=== PATIENT | male | born 1950 | race Caucasian/White ===

== ENCOUNTER 2017-09-13 12:11 | Outpatient (CLI) | payer OTHER ==
[~2017-09-13 12:11] MED LIST: CARDURA8 MG; COUMADIN1 MG; COZAAR100 MG; ELIQUIS2.5 MG; GLUMETZA1000 MG; LANTUS100 U/ML; LEVAQUIN750 MG PO; LOTRIL; METFORMIN HCL1000 MG; NORVASC10 MG; ORPH100T PO; PANADOL MAXIMU500 MG PO; PYRIDIUM200 MG PO; TAMS0.4C PO; TOPROL; WELLBUTRIN XL300 MG; [UNRECOGNIZED DRUG - OTHER]; [UNRECOGNIZED DRUG - OTHER]; [UNRECOGNIZED DRUG - OTHER]
== END 2017-09-13 12:17 | disposition home or self-care (01) ==
LOC: LAB 12:11
DX: R97.21 Rising PSA following treatment for malignant neoplasm of prostate (principal)

== ENCOUNTER → 2017-09-24 11:18 | Outpatient (CLI) | payer OTHER | END | disposition home or self-care (01) | LOC: LAB 11:18 | DX: R97.20 Elevated prostate specific antigen [PSA] (principal) ==

== ENCOUNTER → 2017-10-04 08:55 | Outpatient (CLI) | payer OTHER | END | disposition home or self-care (01) | LOC: LAB 08:55 | DX: I10 Essential (primary) hypertension (principal); E11.9 Type 2 diabetes mellitus without complications; E03.8 Other specified hypothyroidism; E78.2 Mixed hyperlipidemia ==

== ENCOUNTER 2017-11-01 07:03 | Outpatient (CLI) | payer OTHER | END 2017-11-01 07:12 | disposition home or self-care (01) | LOC: SONOGRAMA 07:03 | DX: R97.20 Elevated prostate specific antigen [PSA] (principal) ==

== ENCOUNTER 2018-03-07 08:36 | Outpatient (CLI) | payer OTHER | END 2018-03-07 08:43 | disposition home or self-care (01) | LOC: LAB 08:36 | DX: I10 Essential (primary) hypertension (principal); E11.9 Type 2 diabetes mellitus without complications; E03.8 Other specified hypothyroidism; E78.2 Mixed hyperlipidemia ==

== ENCOUNTER 2018-05-19 11:16 | Outpatient (CLI) | payer OTHER | END 2018-05-19 14:56 | disposition home or self-care (01) | LOC: MRI 11:16 | DX: M46.47 Discitis, unspecified, lumbosacral region (principal) | CPT/HCPCS: 72148 ==

== ENCOUNTER 2018-05-28 07:25 | Outpatient (CLI) | payer OTHER | END 2018-05-28 07:37 | disposition home or self-care (01) | LOC: LAB 07:25 | DX: C61 Malignant neoplasm of prostate (principal) ==

== ENCOUNTER 2018-08-10 10:57 | Inpatient (IN) | payer OTHER ==
[~2018-08-10] VITALS: Ht 180.3 cm; Wt 92.5 kg
[2018-08-10] MEDS ORDERED: XARELTO10 MG (11:05)
[2018-08-10] MEDS ORDERED: LANTUS SOL100 UNIT/1 (11:05)
[2018-08-10] MEDS ORDERED: METFORMIN HCL500 MG (11:05)
== END 2018-08-12 13:13 | disposition home or self-care (01) | DRG 390 ==
LOC: ER 10:57 → SURH 16:37
PROVIDERS: ADMIT Surgery
PROC: BW21ZZZ Computerized Tomography (CT Scan) of Abdomen and Pelvis (ICD-10-PCS; principal; 2018-08-10)
DX: K56.690 Other partial intestinal obstruction (principal); N20.0 Calculus of kidney; I10 Essential (primary) hypertension; E11.42 Type 2 diabetes mellitus with diabetic polyneuropathy; I73.89 Other specified peripheral vascular diseases; Z79.4 Long term (current) use of insulin; Z86.73 Personal history of transient ischemic attack (TIA), and cerebral infarction without residual deficits

== ENCOUNTER 2018-11-16 12:16 | Emergency (ER) | payer OTHER ==
[~2018-11-16] VITALS: Ht 180.3 cm; Wt 93.4 kg
[~2018-11-16 12:16] MED LIST changes: +LANTUS SOL100 UNIT/1; +METFORMIN HCL500 MG; +XARELTO10 MG
== END 2018-11-16 14:48 | disposition home or self-care (01) ==
LOC: ER 12:16
DX: K58.8 Other irritable bowel syndrome (principal)

== ENCOUNTER → 2018-12-04 11:52 | Outpatient (CLI) | payer OTHER | END | disposition home or self-care (01) | LOC: LAB 11:52 | DX: C61 Malignant neoplasm of prostate (principal) ==

== ENCOUNTER 2018-12-08 09:53 | Outpatient (CLI) | payer OTHER | END 2018-12-08 10:00 | disposition home or self-care (01) | LOC: LAB 09:53 | DX: R97.20 Elevated prostate specific antigen [PSA] (principal) ==

== ENCOUNTER 2019-01-02 10:20 | Outpatient (CLI) | payer OTHER | END 2019-01-02 10:26 | disposition home or self-care (01) | LOC: LAB 10:20 | DX: E78.2 Mixed hyperlipidemia (principal); E11.9 Type 2 diabetes mellitus without complications; E03.8 Other specified hypothyroidism; I10 Essential (primary) hypertension ==

== ENCOUNTER 2019-01-21 10:43 | Outpatient (CLI) | payer OTHER | END 2019-01-21 10:46 | disposition home or self-care (01) | LOC: MRI 10:43 | DX: M48.062 Spinal stenosis, lumbar region with neurogenic claudication (principal); M47.26 Other spondylosis with radiculopathy, lumbar region; M51.36 Other intervertebral disc degeneration, lumbar region; M54.41 Lumbago with sciatica, right side; E11.42 Type 2 diabetes mellitus with diabetic polyneuropathy; E66.01 Morbid (severe) obesity due to excess calories; M85.80 Other specified disorders of bone density and structure, unspecified site; I48.91 Unspecified atrial fibrillation; Z79.01 Long term (current) use of anticoagulants; I67.89 Other cerebrovascular disease; I69.80 Unspecified sequelae of other cerebrovascular disease; M47.12 Other spondylosis with myelopathy, cervical region | CPT/HCPCS: 72141 ==

== ENCOUNTER → 2019-01-23 | Outpatient (CLI) | payer OTHER | END | disposition home or self-care (01) | LOC: NUCLEAR 14:30 | DX: M48.062 Spinal stenosis, lumbar region with neurogenic claudication (principal); M47.26 Other spondylosis with radiculopathy, lumbar region; M51.36 Other intervertebral disc degeneration, lumbar region; M85.80 Other specified disorders of bone density and structure, unspecified site; M81.0 Age-related osteoporosis without current pathological fracture ==

== ENCOUNTER 2019-01-30 15:11 | Inpatient (IN) | payer OTHER ==
[~2019-01-30] VITALS: Ht 180.3 cm; Wt 93.0 kg
== END 2019-02-03 10:32 | disposition home or self-care (01) | DRG 379 ==
LOC: ER 15:11 → SURH 17:51
PROVIDERS: ADMIT Urology
PROC: BW2GZZZ Computerized Tomography (CT Scan) of Pelvic Region (ICD-10-PCS; principal; 2019-02-02)
DX: K62.5 Hemorrhage of anus and rectum (principal); C61 Malignant neoplasm of prostate; K58.8 Other irritable bowel syndrome; I10 Essential (primary) hypertension; E11.9 Type 2 diabetes mellitus without complications

== ENCOUNTER 2019-02-06 08:41 | Outpatient (CLI) | payer OTHER | END 2019-02-06 09:16 | disposition home or self-care (01) | LOC: LAB 08:41 | DX: D62 Acute posthemorrhagic anemia (principal) ==

== ENCOUNTER 2019-03-30 06:59 | Outpatient (CLI) | payer OTHER | END 2019-03-30 07:11 | disposition home or self-care (01) | LOC: LAB 06:59 | DX: E03.8 Other specified hypothyroidism (principal); I10 Essential (primary) hypertension; E11.9 Type 2 diabetes mellitus without complications; E78.2 Mixed hyperlipidemia ==

== ENCOUNTER 2019-07-25 08:07 | Outpatient (CLI) | payer OTHER | END 2019-07-25 08:17 | disposition home or self-care (01) | LOC: LAB 08:07 | DX: E11.9 Type 2 diabetes mellitus without complications (principal); E03.8 Other specified hypothyroidism; E78.2 Mixed hyperlipidemia; I10 Essential (primary) hypertension ==

== ENCOUNTER 2020-02-02 12:00 | Emergency (ER) | payer OTHER ==
[~2020-02-02] VITALS: Ht 177.8 cm; Wt 92.1 kg
== END 2020-02-02 16:12 | disposition home or self-care (01) ==
LOC: ER 12:00
DX: N20.0 Calculus of kidney (principal); R31.0 Gross hematuria

== ENCOUNTER 2020-02-17 00:08 | Emergency (ER) | payer OTHER ==
[~2020-02-17] VITALS: Ht 180.3 cm; Wt 93.4 kg
[2020-02-17] MEDS ORDERED: KETO10TA2 PO (10:26)
[2020-02-17] MEDS ORDERED: TAMS0.4C PO (10:26)
== END 2020-02-17 11:14 | disposition home or self-care (01) ==
LOC: ER 00:08
DX: N20.0 Calculus of kidney (principal); R10.31 Right lower quadrant pain

== ENCOUNTER 2020-02-18 12:00 | Outpatient (CLI) | payer OTHER ==
[~2020-02-18 12:00] MED LIST changes: +KETO10TA2 PO
== END 2020-02-18 12:06 | disposition home or self-care (01) ==
LOC: RAD 12:00
PROVIDERS: ATTEND Urology
DX: E11.9 Type 2 diabetes mellitus without complications (principal)

== ENCOUNTER → 2020-02-20 09:11 | Outpatient (CLI) | payer OTHER | END | disposition home or self-care (01) | LOC: LAB 09:11 | PROVIDERS: ATTEND Urology | DX: D68.8 Other specified coagulation defects (principal); D68.0 Von Willebrand disease; D65 Disseminated intravascular coagulation [defibrination syndrome] ==

== ENCOUNTER 2020-02-22 09:14 | Outpatient (CLI) | payer OTHER | END 2020-02-22 09:26 | disposition home or self-care (01) | LOC: RAD 09:14 | PROVIDERS: ATTEND Urology | DX: N20.1 Calculus of ureter (principal) ==

== ENCOUNTER 2020-03-22 10:25 | Outpatient (CLI) | payer OTHER | END 2020-03-22 10:29 | disposition home or self-care (01) | LOC: LAB 10:25 | PROVIDERS: ATTEND Urology | DX: R97.20 Elevated prostate specific antigen [PSA] (principal) ==

== ENCOUNTER 2020-04-15 07:24 | Outpatient (CLI) | payer OTHER | END 2020-04-15 07:26 | disposition home or self-care (01) | LOC: SONOGRAMA 07:24 | PROVIDERS: ATTEND Urology | DX: R97.20 Elevated prostate specific antigen [PSA] (principal) ==

== ENCOUNTER 2020-04-22 09:04 | Outpatient (CLI) | payer OTHER | END 2020-04-22 09:09 | disposition home or self-care (01) | LOC: LAB 09:04 | PROVIDERS: ATTEND Internal Medicine Cardiovascular Disease | DX: E11.9 Type 2 diabetes mellitus without complications (principal); I10 Essential (primary) hypertension; E03.8 Other specified hypothyroidism; E78.2 Mixed hyperlipidemia ==

== ENCOUNTER 2020-04-26 10:17 | Outpatient (CLI) | payer OTHER | END 2020-04-26 10:34 | disposition home or self-care (01) | LOC: NUCLEAR 10:17 | DX: I73.9 Peripheral vascular disease, unspecified (principal); M48.062 Spinal stenosis, lumbar region with neurogenic claudication; M47.26 Other spondylosis with radiculopathy, lumbar region; M51.36 Other intervertebral disc degeneration, lumbar region; M54.41 Lumbago with sciatica, right side; E11.42 Type 2 diabetes mellitus with diabetic polyneuropathy; E66.01 Morbid (severe) obesity due to excess calories; M85.80 Other specified disorders of bone density and structure, unspecified site; I48.91 Unspecified atrial fibrillation; Z79.01 Long term (current) use of anticoagulants; I67.89 Other cerebrovascular disease; I69.80 Unspecified sequelae of other cerebrovascular disease; M47.12 Other spondylosis with myelopathy, cervical region ==

== ENCOUNTER 2020-05-06 14:01 | Outpatient (CLI) | payer OTHER | END 2020-05-06 14:09 | disposition home or self-care (01) | LOC: MRI 14:01 | DX: M48.062 Spinal stenosis, lumbar region with neurogenic claudication (principal); M47.26 Other spondylosis with radiculopathy, lumbar region; M51.36 Other intervertebral disc degeneration, lumbar region; M54.41 Lumbago with sciatica, right side; E11.42 Type 2 diabetes mellitus with diabetic polyneuropathy; I48.91 Unspecified atrial fibrillation; Z79.01 Long term (current) use of anticoagulants; I67.89 Other cerebrovascular disease; I69.80 Unspecified sequelae of other cerebrovascular disease; M47.12 Other spondylosis with myelopathy, cervical region; I73.89 Other specified peripheral vascular diseases | CPT/HCPCS: 72141; 72148 ==

== ENCOUNTER 2020-08-29 09:44 | Outpatient (CLI) | payer OTHER | END 2020-08-29 09:50 | disposition home or self-care (01) | LOC: LAB 09:44 | PROVIDERS: ATTEND Internal Medicine Cardiovascular Disease | DX: N40.0 Benign prostatic hyperplasia without lower urinary tract symptoms (principal); I10 Essential (primary) hypertension; E11.9 Type 2 diabetes mellitus without complications; E78.2 Mixed hyperlipidemia ==

== ENCOUNTER 2020-10-20 09:26 | Outpatient (CLI) | payer OTHER | END 2020-10-20 09:32 | disposition home or self-care (01) | LOC: LAB 09:26 | PROVIDERS: ATTEND Urology | DX: C61 Malignant neoplasm of prostate (principal) ==

== ENCOUNTER 2020-11-23 15:47 | Emergency (ER) | payer OTHER ==
[~2020-11-23] VITALS: Ht 180.3 cm; Wt 93.0 kg
[2020-11-23] MEDS ORDERED: ORPHENADRINE C100 MG PO (21:40)
[2020-11-23] MEDS ORDERED: KETO10TA2 PO (21:40)
== END 2020-11-23 21:44 | disposition home or self-care (01) ==
LOC: ER 15:47
DX: S30.0XXA Contusion of lower back and pelvis, initial encounter (principal); S40.012A Contusion of left shoulder, initial encounter; V49.9XXA Car occupant (driver) (passenger) injured in unspecified traffic accident, initial encounter; Y93.89 Activity, other specified; Y92.488 Other paved roadways as the place of occurrence of the external cause; Y99.8 Other external cause status

== ENCOUNTER 2020-12-24 09:16 | Outpatient (CLI) | payer OTHER ==
[~2020-12-24 09:16] MED LIST changes: +ORPHENADRINE C100 MG PO
== END 2020-12-24 09:21 | disposition home or self-care (01) ==
LOC: LAB 09:16
PROVIDERS: ATTEND Internal Medicine Cardiovascular Disease
DX: E11.9 Type 2 diabetes mellitus without complications (principal); E78.2 Mixed hyperlipidemia; E03.8 Other specified hypothyroidism; I10 Essential (primary) hypertension; Z12.11 Encounter for screening for malignant neoplasm of colon

== ENCOUNTER 2021-02-25 14:56 | Emergency (ER) | payer OTHER ==
[~2021-02-25] VITALS: Ht 180.3 cm; Wt 95.3 kg
[2021-02-25] MEDS ORDERED: XARELTO10 MG (15:11)
== END 2021-02-25 18:45 | disposition home or self-care (01) ==
LOC: ER 14:56 → CPU-OBS 16:54 → ER 16:54
DX: R55 Syncope and collapse (principal); R42 Dizziness and giddiness
CPT/HCPCS: 70544

== ENCOUNTER 2021-05-26 00:29 | Emergency (ER) | payer OTHER ==
[~2021-05-26] VITALS: Ht 170.2 cm; Wt 94.3 kg
[2021-05-26] MEDS ORDERED: KETO10TA2 PO (08:34)
[2021-05-26] MEDS ORDERED: CIPRO500 MG PO (08:34)
== END 2021-05-26 08:49 | disposition home or self-care (01) ==
LOC: ER 00:29
DX: N20.0 Calculus of kidney (principal); N21.0 Calculus in bladder; R14.0 Abdominal distension (gaseous)

== ENCOUNTER 2021-06-08 11:10 | Emergency (ER) | payer OTHER ==
[~2021-06-08] VITALS: Ht 180.3 cm; Wt 93.4 kg
[~2021-06-08 11:10] MED LIST changes: +CIPRO500 MG PO
[2021-06-08] MEDS ORDERED: COZAAR50 MG PO (11:33)
== END 2021-06-08 16:21 | disposition home or self-care (01) ==
LOC: ER 11:10
DX: K21.9 Gastro-esophageal reflux disease without esophagitis (principal); R31.29 Other microscopic hematuria; R10.13 Epigastric pain; Z03.818 Encounter for observation for suspected exposure to other biological agents ruled out

== ENCOUNTER 2021-06-10 09:52 | Outpatient (CLI) | payer OTHER | END 2021-06-10 09:53 | disposition home or self-care (01) | LOC: LAB 09:52 | PROVIDERS: ATTEND Urology | DX: C61 Malignant neoplasm of prostate (principal) ==

== ENCOUNTER → 2021-06-10 | Outpatient (CLI) | payer OTHER ==
[~2021-06-10] MED LIST changes: +COZAAR50 MG PO
== END | disposition home or self-care (01) ==
LOC: RAD 10:15
PROVIDERS: ATTEND Urology
DX: N20.1 Calculus of ureter (principal)

== ENCOUNTER 2021-06-22 11:26 | Outpatient (CLI) | payer OTHER | END 2021-06-22 11:28 | disposition home or self-care (01) | LOC: LAB 11:26 | PROVIDERS: ATTEND Internal Medicine Cardiovascular Disease | DX: Z12.11 Encounter for screening for malignant neoplasm of colon (principal) ==

== ENCOUNTER 2021-07-06 09:02 | Outpatient (CLI) | payer OTHER | END 2021-07-06 09:03 | disposition home or self-care (01) | LOC: LAB 09:02 | PROVIDERS: ATTEND Internal Medicine Cardiovascular Disease | DX: I10 Essential (primary) hypertension (principal); E11.9 Type 2 diabetes mellitus without complications; E03.8 Other specified hypothyroidism; E78.2 Mixed hyperlipidemia; N39.0 Urinary tract infection, site not specified ==

== ENCOUNTER 2021-07-10 10:51 | Outpatient (CLI) | payer OTHER | END 2021-07-10 11:00 | disposition home or self-care (01) | LOC: RAD 10:51 → RX STUDY 10:51 | PROVIDERS: ATTEND Internal Medicine Gastroenterology | DX: R10.84 Generalized abdominal pain (principal) ==

== ENCOUNTER 2021-07-24 12:10 | Outpatient (CLI) | payer OTHER | END 2021-07-24 12:12 | disposition home or self-care (01) | LOC: LAB 12:10 | PROVIDERS: ATTEND Urology | DX: N30.00 Acute cystitis without hematuria (principal) ==

== ENCOUNTER 2021-11-11 08:36 | Outpatient (CLI) | payer OTHER | END 2021-11-11 08:46 | disposition home or self-care (01) | LOC: LAB 08:36 | PROVIDERS: ATTEND Internal Medicine Cardiovascular Disease | DX: E03.9 Hypothyroidism, unspecified (principal); I10 Essential (primary) hypertension; E11.9 Type 2 diabetes mellitus without complications; E78.2 Mixed hyperlipidemia; Z12.11 Encounter for screening for malignant neoplasm of colon; N40.0 Benign prostatic hyperplasia without lower urinary tract symptoms ==

== ENCOUNTER 2021-12-08 08:27 | Outpatient (CLI) | payer OTHER | END 2021-12-08 08:33 | disposition home or self-care (01) | LOC: TOM 08:27 | PROVIDERS: ATTEND Internal Medicine Gastroenterology | DX: K63.5 Polyp of colon (principal); Z12.11 Encounter for screening for malignant neoplasm of colon ==

== ENCOUNTER 2021-12-28 12:58 | Outpatient (CLI) | payer OTHER | END 2021-12-28 13:00 | disposition home or self-care (01) | LOC: RAD 12:58 | PROVIDERS: ATTEND Urology | DX: N21.0 Calculus in bladder (principal) ==

== ENCOUNTER 2022-02-23 10:04 | Outpatient (CLI) | payer OTHER | END 2022-02-23 10:06 | disposition home or self-care (01) | LOC: RAD 10:04 | PROVIDERS: ATTEND Urology | DX: M12.9 Arthropathy, unspecified (principal); M46.48 Discitis, unspecified, sacral and sacrococcygeal region ==

== ENCOUNTER 2022-03-20 08:44 | Outpatient (CLI) | payer OTHER | END 2022-03-20 08:45 | disposition home or self-care (01) | LOC: LAB 08:44 | PROVIDERS: ATTEND Ophthalmology | DX: D68.8 Other specified coagulation defects (principal); I10 Essential (primary) hypertension ==

== ENCOUNTER 2022-03-20 09:39 | Outpatient (CLI) | payer OTHER | END 2022-03-20 09:43 | disposition home or self-care (01) | LOC: RAD 09:39 | PROVIDERS: ATTEND Ophthalmology | DX: R07.89 Other chest pain (principal) ==

== ENCOUNTER 2022-03-21 13:55 | Outpatient (CLI) | payer OTHER | END 2022-03-21 13:56 | disposition home or self-care (01) | LOC: NUCLEAR 13:55 | PROVIDERS: ATTEND Ophthalmology | DX: R94.31 Abnormal electrocardiogram [ECG] [EKG] (principal) ==

== ENCOUNTER 2022-05-31 08:44 | Outpatient (CLI) | payer OTHER | END 2022-05-31 08:45 | disposition home or self-care (01) | LOC: LAB 08:44 | PROVIDERS: ATTEND Urology | DX: N30.00 Acute cystitis without hematuria (principal); R31.0 Gross hematuria ==

== ENCOUNTER 2023-04-10 08:09 | Outpatient (CLI) | payer OTHER | END 2023-04-10 08:23 | disposition home or self-care (01) | LOC: SONOGRAMA 08:09 | PROVIDERS: ATTEND Urology | DX: M46.47 Discitis, unspecified, lumbosacral region (principal); R10.11 Right upper quadrant pain ==

== ENCOUNTER 2023-04-13 10:47 | Outpatient (CLI) | payer OTHER | END 2023-04-13 10:48 | disposition home or self-care (01) | LOC: LAB 10:47 | PROVIDERS: ATTEND Urology | DX: C61 Malignant neoplasm of prostate (principal) ==